=== PATIENT | female | born 1945 | race African-American/Black ===

== ENCOUNTER 2017-07-14 22:38 | Inpatient (IN) | payer MEDICARE, BC ==
[~2017-07-14] VITALS: Ht 165.1 cm; Wt 74.2 kg
--- NOTE | 2017-07-14 22:56 | NUR ---
[id number] FR SOH[facility] FOR SOB X TODAY, HR 30s, LAST DIALYSIS X FRIDAY. PT IS AAOX4. RESP EVEN AND UNLABORED. BREATH SOUNDS CLEAR ON AUSCULTATION. NO S/S OF ACUTE DISTRESS NOTED. OLD DIALYSIS SHUNT ON R ARM AND NEW SHUNT ON L ARM. PT ALSO HAS A CARDIACT CATHETER IN THE PELIC/ FEMORAL AREA. PT DENIES HAVING ANY PAIN AT THIS TIME. MD MADE AWARE OF THE LOW HEART RATE. AWAITING MD FOR BEDSIDE EVAL.
--- NOTE | 2017-07-14 22:58 | NUR ---
BEDSIDE FOR EVAL
--- NOTE | 2017-07-14 23:00 | NUR ---
PT PLACED ON CONTINOUS CITY CLERK AND POX. PT IS PLACED ON 3L NC O2. PT IS ALOS PLACED ON PACER PADS PER .
--- NOTE | 2017-07-14 23:08 | NUR ---
EMT BEDSIDE FOR EKG
[2017-07-14] MEDS ORDERED: ATROPINE SULFATE INJ 1 MG/ML VIAL ONE (23:23)
--- NOTE | 2017-07-14 23:25 | NUR ---
VERBAL ORDERED RECIEVED FROM MD FOR 0.5MG ATROPINE, IVP
[2017-07-14] MEDS ORDERED: ATROPINE SULFATE 1 MG/10 ML DISP.SYRIN ONE (23:26)
[2017-07-14] MEDS ORDERED: ATROPINE SULFATE 1 MG/10 ML DISP.SYRIN IV ONE (23:30)
--- NOTE | 2017-07-14 23:34 | NUR ---
PATIENT ASSIGNED TO ICU 257, DR PULIDO, DX BRADYCARDIA
--- NOTE | 2017-07-14 23:35 | NUR ---
RIG WELDER BEDSIDE FOR BLOOD DRAW
--- NOTE | 2017-07-14 23:38 | NUR ---
PAGED SAND CONDITIONER PANEL DR PULIDO
[2017-07-15] VITALS (9 sets, daily range): BP systolic 98–162; BP diastolic 45–67
[2017-07-15 00:15] LABS: BASOPHILS % (AUTO) 0.2 % (0.0-2.0); EOSINOPHILS # (AUTO) 0.3 /CMM (0.0-0.7); EOSINOPHILS % (AUTO) 2.1 % (0.0-6.0); HEMATOCRIT 24 % (33-45); HEMOGLOBIN 7.8 g/dL (11.5-14.8); LYMPHOCYTES # (AUTO) 0.9 /CMM (0.8-4.8); LYMPHOCYTES % (AUTO) 6.8 % (20.0-44.0); MEAN CORPUSCULAR HEMOGLOBIN 33 PG (26.0-33.0); MEAN CORPUSCULAR HGB CONC 33 g/dl (31.0-36.0); MEAN CORPUSCULAR VOLUME 99 fL (82-100); MONOCYTES # (AUTO) 1.2 /CMM (0.1-1.30); MONOCYTES % (AUTO) 9.7 % (2.0-12.0); NEUTROPHILS # (AUTO) 10.1 /CMM (1.8-8.9); NEUTROPHILS % (AUTO) 81.2 % (43.0-81.0); PLATELET COUNT (AUTO) 321 /CMM (150-450); RDW COEFFICIENT OF VARIATION 23.4 (11.5-15.0); RED BLOOD CELL COUNT(AUTO) 2.38 MIL/uL (4.0-5.2); WHITE BLOOD COUNT (AUTO) 12.4 K/uL (4.3-11.0)
[2017-07-15 00:26] LABS: CALCIUM, SERUM 8.6 mg/dL (8.5-10.1); CARBON DIOXIDE 25 mmol/L (21-32); CHLORIDE 86 mmol/L (98-107); GLUCOSE 137 mg/dL (74-106); INR 1.1 (0.87-1.13); POTASSIUM 5.5 mmol/L (3.5-5.1); SODIUM SERUM 123 mmol/L (136-145); UREA NITROGEN, BLOOD 60 mg/dL (7-18)
[2017-07-15 00:29] LABS: CREATININE 9.5 mg/dL (0.6-1.3)
[2017-07-15] MEDS ORDERED: Z GUARD REMEDY 2 OZ OINT TP PRN (00:30)
[2017-07-15] MEDS ORDERED: ONDANSETRON HCL/PF 4 MG/2 ML VIAL IVP PRN (00:30)
[2017-07-15] MEDS ORDERED: ACETAMINOPHEN 325 MG TABLET PO PRN (00:30)
[2017-07-15 00:33] LABS: ALANINE AMINOTRANSFERASE < 6 U/L (12-78)
[2017-07-15 00:34] LABS: ALBUMIN 2.8 g/dL (3.4-5.0); ALKALINE PHOSPHATASE 113 U/L (46-116); ASPARTATE AMINOTRANSFERASE 32 U/L (15-37); BILIRUBIN,DIRECT 0.3 mg/dL (0.0-0.2); TOTAL PROTEIN, SERUM 7.7 g/dL (6.4-8.2)
[2017-07-15 00:37] LABS: TROPONIN I 0.101 ng/mL (0.00-0.056)
[2017-07-15 01:06] LABS: MAGNESIUM 2.1 mg/dL (1.8-2.4)
--- NOTE | 2017-07-15 01:06 | NUR ---
Patient is resting comfortably in bed with eyes closed. Easily aroused.
[2017-07-15 01:20] LABS: THYROID STIMULATING HORMONE 2.12 uIU/mL (0.358-3.74)
[2017-07-15] MEDS ORDERED: SODIUM POLYSTYRENE SULFONATE 15 G/60 ML BOTTLE ONE ×2 (01:43→01:44)
--- NOTE | 2017-07-15 01:53 | NUR ---
GAVE REPORT TO [facility] ANJALI EDWARDS FOR BRUCE. PT BEING TRANSPORTED VIA ACLS PROTOCOL.
[2017-07-15] MEDS ORDERED: SODIUM POLYSTYRENE SULFONATE 15 G/60 ML BOTTLE PO ONE (02:00)
--- NOTE | 2017-07-15 02:50 | NUR ---
RN NOTES 02:15 AM ADMITTED A 72 YEARS OLD FEMALE PATIENT FROM ER UNDER DR. PULIDO DIAGNOSED WITH BRADYCARDIA DUE TO HR ON MID 30'S IN ER WITH MULTIPLE MEDICAL HISTORY (SEE CHART) AND ALLERGIES TO CHLORPROMAZINE, HYDROMORPHONE, LATEX, FISH, AND SHELLFISH. PT IS AOX 4 ABLE TO VERBALIZED NEEDS AND FEELINGS. UNDERSTAND DSE. PROCESS AND PLAN OF CARE. WITH IV SITE ON RIGHT HAND G 18 INTACT AND PATENT. WITH MANNIE OLD FISTULA , ALVIN FISTULA AND LEFT FEMORAL CATH. INTACT WITH CLEANED DRESSING. NO ACTIVE BLEEDING SHOWS. VS TAKEN TEMP 98.4 BP 162/60 RESP 14 HR 40 SATING 97%. PLACED ON TELE MONITOR REVEALS SB HR 44 NO C/O PAIN, NO SOB. SKIN ASSESSMENT DONE PHOTO TAKEN. BED BATH DONE, KEPT PT CLEAN AND COMFORTABLE IN BED. CALL LIGHT KEPT WITHIN EASY REACH AND INSTRUCTED TO USED IT FOR ASSISTANCE. MD AWARE ABOUT THE PATIENT ADMISSION WITH ORDERS ACKNOWLEDGED. WILL CONTINUE TO MONITOR.
[2017-07-15] MEDS: IV NS 0.9% 1,000 ML IV PRN ×2 (03:47→07:56)
[2017-07-15] MEDS ORDERED: IPRA3AMP IH (05:24)
[2017-07-15] MEDS ORDERED: NITR0.4T SL (05:24)
[2017-07-15] MEDS ORDERED: ASPI-1152 PO (05:24)
[2017-07-15] MEDS ORDERED: SENN-167 PO (05:24)
[2017-07-15] MEDS ORDERED: SEVE0.8P3 PO (05:24)
[2017-07-15] MEDS ORDERED: CRAN425C6 PO (05:24)
[2017-07-15] MEDS ORDERED: POLY17PO4 PO (05:24)
[2017-07-15] MEDS ORDERED: ATOR40TA PO (05:24)
[2017-07-15] MEDS ORDERED: FLUO0.257 PO (05:24)
[2017-07-15] MEDS ORDERED: ZINC220C6 PO (05:24)
[2017-07-15] MEDS ORDERED: NYST15PO4 TP (05:24)
[2017-07-15] MEDS ORDERED: ACET-868 PO (05:24)
[2017-07-15] MEDS ORDERED: VIT1TABL46 PO (05:24)
[2017-07-15] MEDS ORDERED: ASCO-340 PO (05:24)
[2017-07-15] MEDS ORDERED: CARV12.5 PO (05:24)
[2017-07-15] MEDS ORDERED: HYDR-548 PO (05:24)
[2017-07-15] MEDS ORDERED: SEVE800T8 PO ×2 (05:24→10:41)
[2017-07-15] MEDS ORDERED: AMLO10TA2 PO (05:24)
[2017-07-15] MEDS ORDERED: TICA90TA PO (05:24)
[2017-07-15] MEDS ORDERED: FERR325T23 PO (05:24)
[2017-07-15] MEDS ORDERED: LORA0.5T PO (05:24)
[2017-07-15] MEDS ORDERED: D (05:24)
[2017-07-15] MEDS ORDERED: HYDR-4076 PO (05:24)
[2017-07-15] MEDS ORDERED: CINA30TA2 PO (05:24)
[2017-07-15] MEDS ORDERED: PANT40TA4 PO (05:24)
[2017-07-15 05:37] LABS: THYROID STIMULATING HORMONE 1.907 uIU/mL (0.358-3.74)
[2017-07-15 05:38] LABS: TROPONIN I 0.112 ng/mL (0.00-0.056)
--- NOTE | 2017-07-15 06:57 | NUR ---
RN NOTES TRANSFER PT TO [facility] ROOM 120-1. REPORT GIVEN TO TAMIE MARSH RN FOR CONTINUITY OF CARE PT VS STABLE LAST HR TAKEN WAS 62 VS WNL. PT IS AOX4 VERY COMPLIANT WITH CARE.
--- NOTE | 2017-07-15 07:35 | NUR ---
RN NOTES RECEIVED PT FROM [employer] INTERN, A&0X3, ON 2L NC SATING WELL NO SOB. SINUS YUE ON THE TELE CARL HR 61. RH 18G IV SITE INTACT. BED LOCKED AND IN LOWEST POSITION, CALL LIGHT WITHIN REACH, WILL CONT TO CARL.
--- NOTE | 2017-07-15 08:46 | NUR ---
WOUND CARE CONSULT: PT PRESENTS WITH STAGE 2 ULCER TO SACRUM, WELL RASH WITH SCARRING/STAINING OF SURROUNDING SACRAL/BUTTOCK SKIN AREAS, PRESENT ON ADMISSION. PT NOTED TO HAVE DIALYSIS SHUNT DRESSING TO LEFT ARM AND LEFT GROIN. DEFER TO MD FOR SHUNTS. DRY ABRASION NOTED PROXIMAL TO LEFT GROIN DRESSING, NO DRAINAGE NOTED. ALL SKIN PROTECTION AND WOUND RECOMMENDATIONS DISCUSSED WITH NURSING STAFF. ISOFLEX LOW AIRLOSS BED TO BE PLACED. PT ABLE TO ASSIST WITH TURNING AND REPOSITIONING IN BED. PT IS INCONTINENT OF STOOL AT TIMES. WILL SEE PRN. MD IN AGREEMENT WITH PLAN OF CARE. Addendum: 07/15/17 at 0849 by ROVERTO GILLETTE WNDNU Amended: Links added.
[2017-07-15] MEDS ORDERED: HYDROGEL DRESSING 90 GM TUBE TP SCH (09:00)
[2017-07-15] MEDS ORDERED: HYDROGEL DRESSING 90 GM TUBE TP PRN (09:00)
[2017-07-15] MEDS: HYDROCODONE/APAP 5/325MG 1 EACH TABLET PO PRN ×3 (09:10→20:44)
[2017-07-15] MEDS: CLOTRIMAZOLE 1% 15 GM TUBE TP SCH ×2 (09:12→17:19)
[2017-07-15] MEDS ORDERED: BISA10SU8 RC (10:41)
[2017-07-15] MEDS ORDERED: DOCU100C36 PO (10:41)
[2017-07-15] MEDS ORDERED: AMIN30LI2 PO (10:41)
[2017-07-15] MEDS ORDERED: CARV3.122 PO (10:41)
[2017-07-15] MEDS ORDERED: hydrALAZINE HCL 25 MG TABLET PO PRN (17:30)
[2017-07-15] MEDS ORDERED: DOCUSATE SODIUM 100 MG CAPSULE PO PRN (17:30)
[2017-07-15] MEDS ORDERED: BISACODYL SUPP (10 MG) 10 MG/SUPP.RECT SUPP.RECT RC PRN (17:30)
[2017-07-15] MEDS: PROSOURCE / PROSTAT (PYXIS) 30 ML UDC PO SCH (17:55)
[2017-07-15] MEDS: CINACALCET HCL 30 MG TABLET PO SCH (17:55)
[2017-07-15 17:57] LABS: CALCIUM, SERUM 8.4 mg/dL (8.5-10.1); CARBON DIOXIDE 25 mmol/L (21-32); CHLORIDE 92 mmol/L (98-107); CREATININE 5.5 mg/dL (0.6-1.3); GLUCOSE 99 mg/dL (74-106); POTASSIUM 3.1 mmol/L (3.5-5.1); SODIUM SERUM 132 mmol/L (136-145); UREA NITROGEN, BLOOD 33 mg/dL (7-18)
--- NOTE | 2017-07-15 18:36 | NUR ---
RN NOTES PT REMAINED IN STABLE CONDITION THROUGHOUT THE SHIFT, NO SIGNIFICANT CHANGES NOTED. TOLERATED HD, 2L OUT. PT COMPLAINS OF GENERALIZED PAIN, NORCO ADMINISTERED X2. WILL ENDORSE TO ONCOMING SHIFT.
--- NOTE | 2017-07-15 20:00 | NUR ---
RN INITIAL NOTES RECEIVED PT RESTING IN BED, A&0X3, ON 2L NC SATING WELL NO SOB. RH 18G IV SITE INTACT S/L. BED LOCKED AND IN LOWEST POSITION, CALL LIGHT WITHIN REACH, WILL CONT TO CARL.
[2017-07-15] MEDS: ATORVASTATIN 40 MG TABLET PO SCH (21:05)
[2017-07-15] MEDS: ZOLPIDEM TARTRATE 5 MG TABLET PO PRN (21:05)
[2017-07-16] VITALS: BP 141/58
[2017-07-16 04:00] VITALS: BP 150/69
--- NOTE | 2017-07-16 06:30 | NUR ---
RN CLOSING NOTES NO CHANGES IN PT CONDITION OVER SHIFT. RECEIVED PT RESTING IN BED, A&0X3, ON 2L NC SATING WELL NO SOB. RH 18G IV SITE INTACT S/L. BED LOCKED AND IN LOWEST POSITION, CALL LIGHT WITHIN REACH, WILL ENDORSE TO AM RN.
[2017-07-16] MEDS: HYDROCODONE/APAP 5/325MG 1 EACH TABLET PO PRN ×2 (06:50→20:30)
[2017-07-16 07:20] LABS: BASOPHILS % (AUTO) 0.4 % (0.0-2.0); EOSINOPHILS # (AUTO) 0.3 /CMM (0.0-0.7); HEMATOCRIT 22 % (33-45); HEMOGLOBIN 7.4 g/dL (11.5-14.8); LYMPHOCYTES # (AUTO) 0.9 /CMM (0.8-4.8); LYMPHOCYTES % (AUTO) 8.2 % (20.0-44.0); MEAN CORPUSCULAR HEMOGLOBIN 34 PG (26.0-33.0); MEAN CORPUSCULAR HGB CONC 34 g/dl (31.0-36.0); MEAN CORPUSCULAR VOLUME 100 fL (82-100); MONOCYTES # (AUTO) 1.8 /CMM (0.1-1.30); MONOCYTES % (AUTO) 16.5 % (2.0-12.0); NEUTROPHILS # (AUTO) 7.7 /CMM (1.8-8.9); NEUTROPHILS % (AUTO) 71.9 % (43.0-81.0); PLATELET COUNT (AUTO) 301 /CMM (150-450); RDW COEFFICIENT OF VARIATION 23.1 (11.5-15.0); WHITE BLOOD COUNT (AUTO) 10.7 K/uL (4.3-11.0)
[2017-07-16 07:21] LABS: CALCIUM, SERUM 8.7 mg/dL (8.5-10.1); CARBON DIOXIDE 27 mmol/L (21-32); CHLORIDE 88 mmol/L (98-107); GLUCOSE 81 mg/dL (74-106); POTASSIUM 4.3 mmol/L (3.5-5.1); SODIUM SERUM 127 mmol/L (136-145); UREA NITROGEN, BLOOD 55 mg/dL (7-18)
[2017-07-16 07:22] LABS: ALBUMIN 2.7 g/dL (3.4-5.0); ALKALINE PHOSPHATASE 116 U/L (46-116); ASPARTATE AMINOTRANSFERASE 39 U/L (15-37); BILIRUBIN,TOTAL 0.8 mg/dL (0.2-1.0); MAGNESIUM 2.1 mg/dL (1.8-2.4); PHOSPHORUS 4.5 mg/dL (2.5-4.9); TOTAL PROTEIN, SERUM 7.4 g/dL (6.4-8.2)
[2017-07-16 07:23] LABS: ALANINE AMINOTRANSFERASE < 6 U/L (12-78)
[2017-07-16 07:24] LABS: CREATININE 8.9 mg/dL (0.6-1.3)
--- NOTE | 2017-07-16 07:25 | NUR ---
RN OPENING NOTES RECEIVED PT. IN BED A&OX2, PT. IS CONFUSED TO TIME. BREATHING UNLABORED, AND EVENLY ON OXYGEN AT 2L/MIN VIA NASAL CANNULA. NO S/S OF ACUTE DISTRESS. IV ACCESS ON RIGHT HAND SALINE LOCKED. PT. HAS AN AV SHUNT ON THE LEFT UPPER ARM. HEMODIALYSIS WAS PERFORMED YESTERDAY USING THE LEFT GROIN CATHETER. BED IS IN LOWEST, AND LOCKED POSITION, 2 SIDE RAILS UP, AND INSTRUCTED PT. TO USE CALL LIGHT FOR ASSISTANCE. ALL NEEDS MET. WILL CONTINUE TO ASSESS AND MONITOR.
[2017-07-16 07:48] LABS: CHOLESTEROL 89 mg/dL (<200); HDL CHOLESTEROL 57 mg/dL (40-60); LDL 27 mg/dL (0-99); TRIGLYCERIDES 50 mg/dL (30-150)
[2017-07-16 08:00] VITALS: BP 147/64
[2017-07-16] MEDS: ALBUTEROL FS 2.5 MG/0.5 ML VIAL.NEB NEB SCH ×3 (08:24→19:49)
[2017-07-16] MEDS: IPRATROPIUM NEB FS 0.5 MG/2.5 ML AMPUL.NEB NEB SCH ×3 (08:24→19:48)
[2017-07-16] MEDS: CLOTRIMAZOLE 1% 15 GM TUBE TP SCH ×2 (09:20→17:30)
[2017-07-16] MEDS: ZINC SULFATE 220 MG CAPSULE PO SCH (09:20)
[2017-07-16] MEDS: VIT B CMPLX 3/FA/VIT C/BIOTIN 1 TAB TABLET PO SCH (09:21)
[2017-07-16] MEDS: CARVEDILOL 3.125 MG TABLET PO SCH ×2 (09:21→17:00)
[2017-07-16] MEDS: ASPIRIN EC 81 MG TABLET.DR PO SCH (09:21)
[2017-07-16] MEDS: AMLODIPINE BESYLATE 10 MG TABLET PO SCH (09:22)
[2017-07-16] MEDS: CINACALCET HCL 30 MG TABLET PO SCH (09:22)
[2017-07-16] MEDS: TICAGRELOR 90 MG TABLET PO SCH ×2 (09:22→17:29)
[2017-07-16] MEDS: PROSOURCE / PROSTAT (PYXIS) 30 ML UDC PO SCH (09:27)
[2017-07-16] MEDS: PANTOPRAZOLE 40 MG TABLET.DR PO SCH (09:34)
[2017-07-16 09:49] LABS: EOSINOPHILS % (MANUAL) 5 % (0-4); LYMPHOCYTES % (MANUAL) 6 % (16-48); MONOCYTES % (MANUAL) 9 % (0-11.0); NEUTROPHILS % (MANUAL) 80 (42-76)
[2017-07-16] MEDS ORDERED: ONDANSETRON HCL/PF 4 MG/2 ML VIAL IV PRN (12:00)
[2017-07-16] MEDS ORDERED: FEE PK DOSING 1 MIN EA MC ONE (12:32)
[2017-07-16] MEDS ORDERED: VANCOMYCIN 1 GM in IV D5W 250 ML IV ONE (13:00)
[2017-07-16] MEDS ORDERED: CEFAZOLIN IV SCH (14:00)
[2017-07-16] MEDS ORDERED: D5W IV SCH ×2 (14:00→21:00)
--- NOTE | 2017-07-16 15:06 | NUR ---
RN NOTES PT. C/O COUGH. DISCUSSED WITH MD, PER MD NEW ORDER WAS GIVEN FOR COUGH MEDICATION PER PHARMACY DOSING.
[2017-07-16] MEDS: LORAZEPAM 0.5 MG TABLET PO PRN ×2 (15:18→22:15)
[2017-07-16 16:00] VITALS: BP_SYST 105; BP_SYST 129; BP_DIAS 101; BP_DIAS 59
[2017-07-16] MEDS: GUAIFENESIN/D-METHORPHAN HB 5 ML UDC PO PRN ×2 (17:30→21:28)
--- NOTE | 2017-07-16 19:00 | NUR ---
RN NOTES PT. RECEIVED HEMODIALYSIS TODAY.
--- NOTE | 2017-07-16 19:30 | NUR ---
RN INITIAL NOTES RECEIVED PATIENT RESTING IN BED, AWAKE, A&0X3, ON 2L NC SATTING WELL NO SOB. RH 18G IV SITE PATENT AND INTACT, FLUSHED WITH NS FREE FROM ANY S/S OF INFILTRATION OR PHLEBITIS. RIGHT FEMORAL HD CATH DRESSING CLEAN, DRY AND INTACT. BED LOCKED AND IN LOWEST POSITION, CALL LIGHT WITHIN REACH, WILL CONT TO MONITOR
[2017-07-16 20:00] VITALS: BP 164/71
--- NOTE | 2017-07-16 20:00 | NUR ---
RN CLOSING NOTES PT. IN BED A&OX2, ANXIOUS. PT. IS CONFUSED TO TIME. BREATHING UNLABORED, AND EVENLY ON OXYGEN AT 2L/MIN VIA NASAL CANNULA. NO S/S OF ACUTE DISTRESS. IV ACCESS ON RIGHT HAND SALINE LOCKED. PT. HAS AN AV SHUNT ON THE LEFT UPPER ARM. HEMODIALYSIS WAS PERFORMED YESTERDAY USING THE LEFT GROIN CATHETER, AND HEMODIALYSIS WAS PERFORMED TODAY. BED IS IN LOWEST, AND LOCKED POSITION, 2 SIDE RAILS UP, AND INSTRUCTED PT. TO USE CALL LIGHT FOR ASSISTANCE. ALL NEEDS MET. WILL ENDORSE REPORT TO NURSE.
[2017-07-16] MEDS: MAG HYDROX/AL HYDROX/SIMETH 30 ML UDC PO PRN (20:30)
[2017-07-16] MEDS ORDERED: CEFTAZIDIME IV SCH (21:00)
[2017-07-16] MEDS: HYDROCODONE/APAP 10/325MG 1 EA TABLET PO PRN (21:25)
[2017-07-16] MEDS: ATORVASTATIN 40 MG TABLET PO SCH (21:25)
[2017-07-16] MEDS: ZOLPIDEM TARTRATE 5 MG TABLET PO PRN (21:26)
--- NOTE | 2017-07-16 22:15 | NUR ---
RN NOTES ATIVAN PO MANUALLY SCANNED/UNSCHEDULED ADMINISTRATION. COMPUTER SHUT OFF/POWERED OFF BEFORE SAVING. MEDICATION ADMINISTERED PRESCRIBED
[2017-07-17 04:00] VITALS: BP 149/63
[2017-07-17] MEDS: HYDROCODONE/APAP 10/325MG 1 EA TABLET PO PRN (06:05)
[2017-07-17] MEDS: GUAIFENESIN/D-METHORPHAN HB 5 ML UDC PO PRN ×3 (06:05→14:02)
--- NOTE | 2017-07-17 06:48 | NUR ---
RN CLOSING NOTES PATIENT RESTING COMFORTABLY IN BED, ALL NEEDS ATTENDED TO THROUGHOUT SHIFT. WILL ENDORSE THE PATIENT TO THE AM SHIFT NURSE FOR BRUCE
[2017-07-17] MEDS: ALBUTEROL FS 2.5 MG/0.5 ML VIAL.NEB NEB SCH (07:08)
[2017-07-17] MEDS: IPRATROPIUM NEB FS 0.5 MG/2.5 ML AMPUL.NEB NEB SCH (07:08)
[2017-07-17 08:00] VITALS: BP 125/69
[2017-07-17] MEDS: PANTOPRAZOLE 40 MG TABLET.DR PO SCH (08:17)
[2017-07-17] MEDS: CARVEDILOL 3.125 MG TABLET PO SCH (09:00)
[2017-07-17] MEDS: ZINC SULFATE 220 MG CAPSULE PO SCH (09:14)
[2017-07-17] MEDS: AMLODIPINE BESYLATE 10 MG TABLET PO SCH (09:14)
[2017-07-17] MEDS: VIT B CMPLX 3/FA/VIT C/BIOTIN 1 TAB TABLET PO SCH (09:14)
[2017-07-17] MEDS: CINACALCET HCL 30 MG TABLET PO SCH (09:14)
[2017-07-17] MEDS: TICAGRELOR 90 MG TABLET PO SCH (09:14)
[2017-07-17] MEDS: SEVELAMER CARBONATE 800 MG TABLET PO SCH ×2 (09:15→12:40)
[2017-07-17] MEDS: CLOTRIMAZOLE 1% 15 GM TUBE TP SCH (09:15)
[2017-07-17] MEDS: PROSOURCE / PROSTAT (PYXIS) 30 ML UDC PO SCH (09:16)
[2017-07-17] MEDS: ASPIRIN EC 81 MG TABLET.DR PO SCH (09:16)
[2017-07-17] MEDS ORDERED: EPOETIN ALFA (10,000 UNIT) 10,000 UNIT/ML VIAL IV ONE (11:30)
[2017-07-17] MEDS ORDERED: VANCOMYCIN 500 MG in IV NS 0.9% 100 ML IV PRN (12:30)
[2017-07-17] MEDS: MAG HYDROX/AL HYDROX/SIMETH 30 ML UDC PO PRN (14:02)
[2017-07-17 14:05] VITALS: BP 123/43
[2017-07-17] MEDS ORDERED: VANC500F2 IV (14:22)
--- NOTE | 2017-07-17 14:32 | NUR ---
DISCHARGE PATIENT TO [facility]. PATIENT IV IN PLACE. ORDERS SENT FOR MEDICATION RECONCILIATION SENT. PATIENT HAS NO OTHER NEEDS AT THIS TIME. CLEAN DRY BRIEF, NEW UNDERPAD, AND SHEET PROVIDED. PATIENT WILL CONTINUE REHAB AT SKILLED NURSE FACILITY. Addendum: 07/22/17 at 1804 by NICO WANG RN LE: Patient safety: Patient refused wound care photos upon discharge.
[2017-07-17] MEDS ORDERED: SEVELAMER CARBONATE 800 MG TABLET PO SCH (18:00)
== END 2017-07-17 14:36 | DRG 280 ==
LOC: ER 22:39 → ICU 23:45 → TELE-TD 07-15 06:37 → MEDSG1 07-15 12:19
PROVIDERS: ADMIT Internal Medicine; ATTEND Internal Medicine
PROC: 5A1D70Z Performance of Urinary Filtration, Intermittent, Less than 6 Hours Per Day (ICD-10-PCS; principal; 2017-07-14)
PROC: 5A1D70Z Performance of Urinary Filtration, Intermittent, Less than 6 Hours Per Day (ICD-10-PCS; 2017-07-16)
PROC: 5A1D70Z Performance of Urinary Filtration, Intermittent, Less than 6 Hours Per Day (ICD-10-PCS; 2017-07-17)
DX: I21.A1 Myocardial infarction type 2 (principal); N18.6 End stage renal disease; L89.159 Pressure ulcer of sacral region, unspecified stage; I13.2 Hypertensive heart and chronic kidney disease with heart failure and with stage 5 chronic kidney disease, or end stage renal disease; E11.22 Type 2 diabetes mellitus with diabetic chronic kidney disease; I42.9 Cardiomyopathy, unspecified; E87.5 Hyperkalemia; E87.1 Hypo-osmolality and hyponatremia; D63.8 Anemia in other chronic diseases classified elsewhere; I25.10 Atherosclerotic heart disease of native coronary artery without angina pectoris; Z99.2 Dependence on renal dialysis; I25.2 Old myocardial infarction; K21.9 Gastro-esophageal reflux disease without esophagitis; M81.0 Age-related osteoporosis without current pathological fracture; R26.81 Unsteadiness on feet; Z88.5 Allergy status to narcotic agent; Z88.8 Allergy status to other drugs, medicaments and biological substances; Z91.040 Latex allergy status; E78.5 Hyperlipidemia, unspecified; F41.9 Anxiety disorder, unspecified; Z79.82 Long term (current) use of aspirin; Z79.899 Other long term (current) drug therapy; R00.1 Bradycardia, unspecified; I50.9 Heart failure, unspecified; K59.00 Constipation, unspecified
CPT/HCPCS: 36415; 71045-TC; 80048-TC; 80053-TC; 80061-TC; 80076-TC; 82728-TC; 82746; 83540-TC; 83605-TC; 83735-TC; 84100-TC; 84439-TC; 84443-TC; 84484-TC; 85025-TC; 85730-TC; 87040-TC; 87081-TC; 90935-TC; 93307-TC; A4606; A6248; A6402; J0461; J0690; J0713; J0885; J2405; J3370; J7030; J7060; Z7610